=== PATIENT | male | born 1945 | race Caucasian/White ===

== ENCOUNTER 2017-09-05 12:44 | Emergency (ER) | payer OTHER ==
--- NOTE | 2017-09-05 13:00 | EDPHY ---
H & P Time Seen by Provider: 09/05/17 12:59 HPI/ROS: CHIEF COMPLAINT: Rectal bleeding HISTORY OF PRESENT ILLNESS: Patient had a transrectal prostate biopsy by his [facility] urologist Dr. Carlin this morning at 9:30 a.m. With at least 12 samples taken per the patient. About an hour later on 12/31 started having multiple episodes of blood per rectum. Started at with bright red, and then was maroon clots, and then at 1:05 p.m. Just after I if started to evaluate him had another episode of bright red blood. Not associated with feeling lightheaded or dizzy or chest pain or shortness of breath. No abdominal or rectal pain. Symptoms moderate to severe, the patient and his feel like he probably" lost a lot of blood." REVIEW OF SYSTEMS: Eye: no change in vision ENT: no sore throat Cardiac: no chest pain or syncope Pulmonary: Not short of breath Abdomen: No abdominal pain or vomiting Musculoskeletal: no back pain Skin: Multiple areas of chronic skin rash unchanged Neuro: no headache Constitutional: no fever : no urinary symptoms A comprehensive 10 point review of systems is otherwise negative aside from elements mentioned in the history of present illness. PAST MEDICAL HISTORY: Hypertension, glaucoma, prostate, high cholesterol Social history: Nonsmoker He is here with his , today's there 49th wed anniversary and they had plans to go on a trip General Appearance: Alert and conversant, cooperative. Eyes: No scleral icterus. ENT, Mouth: Normal mucous membranes. Respiratory: Normal respiratory effort, breath sounds equal, lungs are clear to auscultation. Cardiovascular: Regular rate and rhythm. Tachycardic. Gastrointestinal: Abdomen is soft and non tender. Rectal exam shows ghassan bright red blood. Neurological: Alert, face symmetric, normal motor and sensory in extremities. Skin: Warm and dry, no rashes. Musculoskeletal: No peripheral edema. Psychiatric: Not agitated. Emergency Department course/MDM: Blood pressure 149/82 but noted to be tachycardic at 111 on triage. Hematocrit checked, a call placed to [facility] for transfer and urology consultation. 1321: Hematocrit 45 on i-STAT, patient is still actively bleeding. Discussed with Dr. Sheppard from [facility]. 1345: Accepting physician Dr. Sheppard and Vasyl, to ED at [facility]. Requests transfer for evaluation by [facility], continued bleeding and tachycardia after procedure earlier today. The accepting physician is Dr. Fallon, urology. Risks, benefits, and alternatives discussed with the patient and consented. The patient will be transferred to [facility] via ALS because he is a [facility] patient, in stable condition. This is a patient requested transfer. Smoking Status: Never smoked Constitutional: Initial Vital Signs Temperature (C) 36.2 C 09/05/17 12:49 Heart Rate 111 H 09/05/17 12:49 Respiratory Rate 16 09/05/17 12:49 Blood Pressure 149/82 H 09/05/17 12:49 O2 Sat (%) 97 09/05/17 12:49 O2 Delivery Mode Room Air Allergies/Adverse Reactions: No Known Allergies Allergy (Unverified 09/05/17 12:48) Home Medications: Medication Instructions Recorded Finasteride 09/05/17 HCTZ (*) 09/05/17 Lisinopril 09/05/17 Simvastatin 09/05/17 Tamsulosin HCl 09/05/17 Timolol 09/05/17 Medical Decision Making Differential Diagnosis: Differential considered including but not limited to upper GI bleed, lower GI bleed, hemorrhoids, post prostate biopsy procedural bleeding. - Data Points Laboratory Results: Laboratory Results 09/05/17 13:13 09/05/17 13:13 09/05/17 09/05/17 09/05/17 13:19 13:13 13:13 WBC 7.89 10^3/uL 10^3/uL (3.80-9.50) RBC 4.35 10^6/uL L 10^6/uL (4.40-6.38) Hgb 15.4 g/dL g/dL (13.7-17.5) POC Hgb 15.3 gm/dL gm/dL (13.7-17.5) Hct 41.4 % % (40.0-51.0) POC Hct 45 % % (40-51) MCV 95.2 fL fL (81.5-99.8) MCH 35.4 pg H pg (27.9-34.1) MCHC 37.2 g/dL H g/dL (32.4-36.7) RDW 11.0 % L % (11.5-15.2) Plt Count 244 10^3/uL 10^3/uL (150-400) MPV 9.2 fL fL (8.7-11.7) Neut % (Auto) 77.3 % H % (39.3-74.2) Lymph % (Auto) 10.4 % L % (15.0-45.0) [place] % (Auto) 10.8 % % (4.5-13.0) Eos % (Auto) 1.0 % % (0.6-7.6) Baso % (Auto) 0.4 % % (0.3-1.7) Nucleat RBC Rel Count 0.0 % % (0.0-0.2) Absolute Neuts (auto) 6.10 10^3/uL 10^3/uL (1.70-6.50) Absolute Lymphs (auto) 0.82 10^3/uL L 10^3/uL (1.00-3.00) Absolute Monos (auto) 0.85 10^3/uL H 10^3/uL (0.30-0.80) Absolute Eos (auto) 0.08 10^3/uL 10^3/uL (0.03-0.40) Absolute Basos (auto) 0.03 10^3/uL 10^3/uL (0.02-0.10) Absolute Nucleated RBC 0.00 10^3/uL 10^3/uL (0-0.01) Immature Gran % 0.1 % % (0.0-1.1) Immature Gran # 0.01 10^3/uL 10^3/uL (0.00-0.10) POC Sodium 130 mEq/L L mEq/L (135-145) Sodium 131 mEq/L L mEq/L (135-145) POC Potassium 3.8 mEq/L mEq/L (3.3-5.0) Potassium 4.1 mEq/L mEq/L (3.3-5.0) POC Chloride 95 mEq/L L mEq/L (97-110) Chloride 97 mEq/L mEq/L (97-110) Carbon Dioxide 20 mEq/l L mEq/l (22-31) Anion Gap 14 mEq/L mEq/L (8-16) POC BUN 14 mg/dL mg/dL (7-23) BUN 15 mg/dL mg/dL (7-23) Creatinine 0.8 mg/dL mg/dL (0.7-1.3) POC Creatinine 0.9 mg/dL mg/dL (0.7-1.3) Estimated GFR > 60 Glucose 105 mg/dL H mg/dL (70-100) POC Glucose 112 mg/dL H mg/dL (70-100) Calcium 9.3 mg/dL mg/dL (8.5-10.4) Medications Given: Discontinued Medications Sodium Chloride (Ns) 1,000 mls @ 0 mls/hr IV EDNOW ONE; Wide Open PRN Reason: Protocol Stop: 09/05/17 13:09 Last Admin: 09/05/17 13:15 Dose: 1,000 mls Point of Care Test Results: Chemistry 09/05/17 13:19 POC Sodium 130 mEq/L L mEq/L (135-145) POC Potassium 3.8 mEq/L mEq/L (3.3-5.0) POC Chloride 95 mEq/L L mEq/L (97-110) POC BUN 14 mg/dL mg/dL (7-23) POC Creatinine 0.9 mg/dL mg/dL (0.7-1.3) POC Glucose 112 mg/dL H mg/dL (70-100) ISTAT H&H 09/05/17 13:19 POC Hgb 15.3 gm/dL gm/dL (13.7-17.5) POC Hct 45 % % (40-51) Departure - Departure Disposition: [facility] Clinical Impression: Rectal bleeding Condition: Good Referrals: NONE *PRIMARY CARE P,. [Primary Care Provider] - As per Instructions
[2017-09-05] MEDS ORDERED: NS 1,000 ML IV ONE (13:08)
[2017-09-05 13:21] LABS: PLATELET COUNT 244 10^3/uL (150-400)
[2017-09-05 15:04] VITALS: BP 126/80
== END 2017-09-05 15:04 | disposition short-term general hospital (02) ==
DX: K62.5 Hemorrhage of anus and rectum (principal); I10 Essential (primary) hypertension; E86.9 Volume depletion, unspecified
CPT/HCPCS: 82435-PO; 82565-PO; 82947-PO; 84132-PO; 84295-PO; 84520-PO; 85014-PO